=== PATIENT | male | born 1945 | race Native Hawaiian/Other Pacific Islander ===

== ENCOUNTER 2017-10-28 16:59 | Observation (INO) | payer OTHER ==
[~2017-10-28] VITALS: Ht 180.3 cm; Wt 101.2 kg
[2017-10-28 17:05] VITALS: BP 150/79; TEMP 98
[2017-10-28 17:20] LABS: PLATELET COUNT 232 K/uL (142-355)
[2017-10-28 17:32] LABS: POTASSIUM 4.3 mmol/L (3.6-5.2); SODIUM 136 mmol/L (136-145)
[2017-10-28 18:10] LABS: PARTIAL THROMBOPLASTIN TIME 26.3 SECONDS (24.5-33.6)
[2017-10-28 20:51] VITALS: BP 124/55; TEMP 98
[2017-10-28] MEDS ORDERED: ENALAPRIL2.5 MG PO (21:13)
[2017-10-28] MEDS ORDERED: METFORMIN HYDR500 MG PO (21:14)
[2017-10-28] MEDS ORDERED: TAMS0.4C PO (21:14)
[2017-10-28] MEDS ORDERED: ATEN25TA21 PO (21:15)
[2017-10-28] MEDS ORDERED: CLOR3.75 PO (21:17)
[2017-10-28] MEDS ORDERED: ZYBAN150 MG PO (21:17)
[2017-10-28 21:43] VITALS: BP 152/87; TEMP 97.6; Ht 180.3 cm; Wt 101.2 kg
[2017-10-29] VITALS: BP 133/66; TEMP 97.5
[2017-10-29 04:00] VITALS: BP 135/66; TEMP 97.7
[2017-10-29 08:00] VITALS: BP 132/71; TEMP 97.7
[2017-10-29 09:29] LABS: PLATELET COUNT 186 K/uL (142-355)
[2017-10-29 09:37] LABS: POTASSIUM 4.5 mmol/L (3.6-5.2); SODIUM 140 mmol/L (136-145)
[2017-10-29 12:00] VITALS: BP 146/80; TEMP 98.3
[2017-10-29] MEDS ORDERED: NITR0.4S2 SL (15:56)
[2017-10-29] MEDS ORDERED: NITR0.4S SL (15:56)
[2017-10-29 16:00] VITALS: BP 156/84; TEMP 98.3
== END 2017-10-29 16:10 | disposition home or self-care (01) ==
LOC: ED 16:59 → MED/SURG 20:30
DX: R07.89 Other chest pain (principal); I10 Essential (primary) hypertension; K21.9 Gastro-esophageal reflux disease without esophagitis; I63.8 Other cerebral infarction; E11.9 Type 2 diabetes mellitus without complications
CPT/HCPCS: 36415; 80053; 82550; 83735; 84484; 85027; 85610; 85730; 93005; 94760; 96372; 99220; 99283; G0378; J1650

== ENCOUNTER 2017-12-11 13:50 | Outpatient (CLI) | payer OTHER ==
[~2017-12-11 13:50] MED LIST: ATEN25TA21 PO; CLOR3.75 PO; ENALAPRIL2.5 MG PO; METFORMIN HYDR500 MG PO; NITR0.4S SL; NITR0.4S2 SL; TAMS0.4C PO; ZYBAN150 MG PO
[2017-12-11 17:06] LABS: POTASSIUM 4.6 mmol/L (3.6-5.2)
[2017-12-11 17:28] LABS: PLATELET COUNT 237 K/uL (142-355)
== END 2017-12-11 19:57 | disposition home or self-care (01) ==
LOC: LABW 13:50
PROVIDERS: Specialist
DX: R07.2 Precordial pain (principal)
CPT/HCPCS: 36415; 80053; 85027

== ENCOUNTER 2019-07-23 15:35 | Emergency (ER) | payer OTHER ==
[~2019-07-23] VITALS: Ht 182.9 cm; Wt 102.5 kg
[2019-07-23 16:33] LABS: PLATELET COUNT 223 K/uL (142-355)
[2019-07-23 16:40] LABS: POTASSIUM 4.1 mmol/L (3.6-5.2); SODIUM 141 mmol/L (136-145)
[2019-07-23 19:32] VITALS: BP 165/63; TEMP 97.3
== END 2019-07-23 19:32 | disposition home or self-care (01) ==
LOC: ED 15:35
PROVIDERS: Student in an Organized Health Care Education/Training Program
DX: I10 Essential (primary) hypertension (principal); R42 Dizziness and giddiness; R00.1 Bradycardia, unspecified
CPT/HCPCS: 80053; 82962; 83735; 83880; 84443; 84484; 85027; 93005; 96374; 99284; J0360

== ENCOUNTER 2019-11-13 10:32 | Outpatient (CLI) | payer OTHER | END 2019-11-13 19:41 | disposition home or self-care (01) | LOC: US 10:32 | DX: Z13.6 Encounter for screening for cardiovascular disorders (principal); Z87.891 Personal history of nicotine dependence ==

== ENCOUNTER 2020-08-01 19:22 | Emergency (ER) | payer OTHER ==
[~2020-08-01] VITALS: Ht 182.9 cm; Wt 99.8 kg
[2020-08-01 20:30] LABS: POTASSIUM 4.3 mmol/L (3.6-5.2); SODIUM 137 mmol/L (136-145)
[2020-08-01 20:39] LABS: PARTIAL THROMBOPLASTIN TIME 25.1 SECONDS (24.5-33.6)
[2020-08-01 21:02] LABS: PLATELET COUNT 177 K/uL (142-355)
[2020-08-01 21:20] VITALS: BP 171/88; TEMP 98.4
== END 2020-08-01 21:20 | disposition home or self-care (01) ==
LOC: ED 19:22
PROVIDERS: Hospitalist
DX: U07.1 COVID-19 (principal); J06.9 Acute upper respiratory infection, unspecified; R06.02 Shortness of breath
CPT/HCPCS: 36415; 80053; 82550; 83880; 84484; 85027; 85610; 85730; 87502; 87635; 87651; 93005; 99283; U0003

== ENCOUNTER 2021-01-16 13:00 | Outpatient (CLI) | payer OTHER | END 2021-01-16 19:26 | disposition home or self-care (01) | LOC: LAB 13:00 | PROVIDERS: ATTEND Specialist | DX: Z01.89 Encounter for other specified special examinations (principal) | CPT/HCPCS: 87635; G2023; U0003 ==